=== PATIENT | male | born 1990 | race Asian ===

== ENCOUNTER 2017-11-26 20:04 | Emergency (ER) | payer OTHER ==
[~2017-11-26] VITALS: Ht 180.3 cm; Wt 84.4 kg
[2017-11-26 20:15] VITALS: Ht 180.3 cm; Wt 84.4 kg
[2017-11-26 22:34] VITALS: BP 132/78
== END 2017-11-26 22:34 | disposition home or self-care (01) ==
LOC: ED 20:04
DX: Z77.21 Contact with and (suspected) exposure to potentially hazardous body fluids (principal); J45.909 Unspecified asthma, uncomplicated